=== PATIENT | female | born 1985 | race Caucasian/White ===

== ENCOUNTER 2016-08-28 18:27 | Emergency (ER) | payer BC ==
[2016-08-28 18:47] VITALS: BP 111/76; PULSE 75; RESP 16; TEMP 98.2; O2SAT 98
--- NOTE | 2016-08-28 18:48 | UCPHY ---
H & P Time Seen by Provider: 08/28/16 18:35 Patient Type: Established HPI/ROS: HPI Sinus pressure, fatigue. 31-year-old female by private vehicle. She reports having upper respiratory infections including a cough, sore throat, nasal congestion, sinus pressure ongoing for 3 weeks. She reports about a week ago her cough resolved. She comes into the emergency department with complaint of feeling fatigued and having sinus pressure. She has not been running a fever. She denies myalgias and arthralgias. No other complaint. ROS: Constitutional: No fever, no chills. As above. Eyes: No discharge. No changes in vision. ENT: No sore throat. As above. Respiratory: As above. No shortness of breath. Cardiac: No chest pain, no palpitations. Gastrointestinal: No abdominal pain, no vomiting, no diarrhea. Musculoskeletal: No back pain. No neck pain. No myalgias or arthralgias. Skin: No rashes. Neurological: No headache. No focal weakness or altered sensation. Past medical history: ADD, migraine headaches. Social history: Nonsmoker. Here by herself. Physical Exam: General Appearance: Alert, no distress. This patient is responding to questions appropriately and in full sentences. This patient appears well- hydrated and well-nourished. Eyes: Pupils equal and round no pallor or injection. No lid edema, erythema or injection. ENT, Mouth: Mucous membranes are moist. The pharyngeal tissues are unremarkable. No edema or swelling. No asymmetry suggestive of abscess. No erythema or exudates. No facial swelling or erythema. No stridor on auscultation of her Respiratory: There are no retractions, lungs are clear to auscultation with good air movement bilaterally. Cardiovascular: Regular rate and rhythm. No murmur. Neurological: Motor sensory function is grossly intact. Cranial nerves are normal. Gait is normal. Skin: Warm and dry, no rashes. Musculoskeletal: Neck is supple and nontender. No cervical, submental, submandibular lymphadenopathy. Extremities are symmetrical. All joints range without pain or impingement. Psychiatric: No agitation. No depression. Database: EKG: Imaging: Procedures: Emergency department course: Vital signs reviewed and are normal. After my evaluation, explained that I did not feel that antibiotics were indicated at this time. Plan will be to treat with nasal steroids and NSAIDs for a few days, if not after this time she is not having symptom improvement antibiotics can be considered. She is in agreement with this plan. Follow-up and return to emergency department precautions reviewed with her. All of her questions were answered. She was discharged in good condition. Differential Diagnosis: The differential diagnosis on this patient includes but is not limited to viral upper respiratory infection, viral sinusitis, viral syndrome. Serious bacterial infection unlikely. This represents a partial list of diagnoses considered. These considerations are based on history, physical exam, past history, reassessment and diagnostic testing. Allergies/Adverse Reactions: No Known Allergies Allergy (Verified 08/28/16 18:40) Home Medications: Medication Instructions Recorded Adderall 10 MG (*) 12/21/15 Bcp 12/21/15 Departure - Departure Disposition: Home, Routine, Self-Care Clinical Impression: Viral syndrome, Sinusitis Condition: Good Instructions: Sinusitis (ED), Viral Syndrome (ED) Additional Instructions: Read and follow provided instructions. Follow-up with your primary care physician in 1-2 days for re-evaluation. Flonase nasal steroid: 2 sprays to each nostril for 3 days and then 1 spray to each nostril for an additional 4 days. Ibuprofen dosin mg every 6 hours with meals for the next 3 days only. Return to the emergency department for worsening symptoms, fever or other serious concerns. Referrals: NONE *PRIMARY CARE P,. [Primary Care Provider] - As per Instructions - PQRS PQRS Measurement: Not applicable.
== END 2016-08-28 19:10 | disposition home or self-care (01) ==
LOC: CED 18:27
DX: J01.90 Acute sinusitis, unspecified (principal); B34.9 Viral infection, unspecified
CPT/HCPCS: 99214-PO; G0463-PO